=== PATIENT | male | born 1950 | race Caucasian/White ===

== ENCOUNTER → 2017-05-26 | Day surgery (SDC) | payer MEDICARE ==
[~2017-05-26] MED LIST: ASPI81TA50 PO; ATOR40TA PO; HEPARIN PF 500 UNIT/5 ML DISP.SYRIN. IV ONE; IV RINGERS,LACTATED 1000ML 1,000 ML IV SCH; LATA2.5D3 EACHEYE; METO10TA81 PO; OMEG1CAP6 PO; PACL6VIA IV; PROPOFOL 40 ML IV ONE; [UNRECOGNIZED DRUG - CODE] IV; [UNRECOGNIZED DRUG - CODE] IV
--- NOTE | 2017-05-26 09:18 | PDOC1 ---
HISTORY & PHYSICAL H&P William Nava [id number] 1950 05/05/2017 02:30 PM 10/19 [place] [facility] [employer] [facility] OUR PATIENTS COME FIRST [address] [place] [id number] Ph. [phone] Patient: William Nava Date of : 1950 Date: 05/05/2017 2:30 PM Visit Type: Consult This 66 year old male presents for GI bleeding. History of Present Illness: 1. GI bleeding Quality: FOBT positive. Pertinent negatives include abdominal pain, change in bowel habits, constipation, decreased appetite, diarrhea, nausea, vomiting and weight loss. Additional information: Patient has heme positive stool and is here for evaluation. Has been treated for recurrent throat cancer with chemotherapy. INTAKE COMMENTS: Intake Comments: Nurse Note: the pt is here today for a screening colonoscopy, the pt had positive hemoccult cards with his PCP but has not seen any blood with BM's. PROBLEM LIST: Problem Description Onset Date Hypotension due to drugs 07/30/2016 Type 2 diabetes mellitus with hyperglycemia, with long-term current use of insulin 07/30/2016 Essential hypertension 04/29/2016 Larynx cancer 04/29/2016 Squamous cell carcinoma of larynx 04/29/2016 Hyperlipidemia LDL goal <100 04/29/2016 Hypothyroidism, unspecified type 03/27/2016 Hoarseness or changing voice 03/27/2016 Hyperlipidemia LDL goal <130 03/27/2016 Benign non-nodular prostatic hyperplasia without lower urinary tract symptoms Alcohol use disorder 03/27/2016 Colon cancer screening 03/27/2016 Uncontrolled type 2 diabetes mellitus with hyperglycemia, with long-term current use of insulin 06/04/2016 HTN, goal below 130/80 06/04/2016 Prostate cancer screening 03/27/2016 Tracheostomy present 04/29/2016 Tracheostomy care 04/29/2016 Uncontrolled type 2 diabetes mellitus without complication, with long-term current use of insulin 04/29/2016 PAST MEDICAL/SURGICAL HISTORY (Detailed) Disease/disorder Onset Date Management Date Comments laryngectomy tracheostomy Medications (Active): Started Medication Directions Instruction Stopped 03/27/2016 Aspirin Low Dose 81 mg tablet,delayed release take 1 tablet by oral route every day carboplatin infuse by intravenous route every day Erbitux infuse by intravenous route every week over (Maximum infusion rate 10 mg/min) 03/27/2016 Fish Oil [place] 3-6-9 300 mg-1,000 mg capsule,delayed release Take 1 gel capsule by mouth daily 09/29/2016 latanoprost 0.005 % eye drops instill 1 drop by ophthalmic route every day into affected eye(s) in the evening 04/27/2017 Lipitor 40 mg tablet take 1 tablet by oral route every day 03/27/2016 multivitamin tablet take 1 tablet by oral route every day with food paclitaxel 04/24/2017 Reglan 10 mg tablet take 1 tablet by oral route 4 times every day 30 minutes before meals and at bedtime Allergies: Ingredient Reaction Medication Name Comment NO KNOWN ALLERGIES REVIEW OF SYSTEMS System Neg/Pos Details Constitutional Negative Chills, fever, malaise, weight gain and weight loss. ENMT Negative Sore throat. Eyes Negative Double vision. Respiratory Negative Dyspnea and wheezing. Cardio Negative Chest pain and irregular heartbeat/palpitations. GI Positive See HPI. GI Negative Abdominal pain, change in bowel habits, change in stool caliber, constipation, decreased appetite, diarrhea, melena, nausea, see HPI, rectal bleeding and vomiting. Negative Dysuria and hematuria. Endocrine Negative Cold intolerance and heat intolerance. Psych Negative Anxiety. Integumentary Negative Hives and rash. MS Negative Joint pain. Serge/Lymph Negative Easy bleeding and easy bruising. Allergic/Immuno Negative Food allergies. VITAL SIGNS Time BP mm/Hg Pulse /min Resp /min Temp F Ht ft Ht in Ht cm Wt lb Wt kg BMI kg/ m2 BSA m2 O2 Sat% 2:29 PM 132/78 110 98.1 6.0 4.00 193.04 146.40 66.406 17.82 98 Time Measured by 2:29 PM [facility] PHYSICAL EXAM: Exam Findings Details Constitutional Normal Well developed. Eyes Normal Conjunctiva - Right: Normal, Left: Normal. Sclera - Right: Normal, Left: Normal. Nasopharynx Normal Lips/teeth/gums - Normal. Neck Exam Comments Patient has tracheostomy placed due to recurrent throat cancer and has been undergoing chemotherapy. Neck Exam Normal Inspection - Normal. Thyroid gland - Normal. Respiratory * Auscultation - Side: bilateral, Location: base, Findings: crackles. Cardiovascular Normal Regular rate and rhythm. No murmurs, gallops, or rubs. Vascular Normal Pulses - Carotids: Normal, Femoral: Normal, Dorsalis pedis: Normal. Abdomen Normal Inspection - Normal. Anterior palpation - No guarding. No abdominal tenderness. No hepatic enlargement. No splenic enlargement. No hernia. No ascites. Skin Normal Inspection - Normal. Extremity Normal No edema. Psychiatric * Oriented to time, place, person and situation. Psychiatric Normal Appropriate mood and effect. Assessment/Plan # Detail Type Description 1. Assessment Gastrointestinal hemorrhage, unspecified gastrointestinal hemorrhage type (K92.2). Patient Plan schedule colonoscopy at [facility] Plan Orders Further diagnostic evaluations ordered today include(s) Colonoscopy to be performed today. He is to schedule a follow-up visit with Luis Manuel Kathleen MD upon completion of work-up Electronically signed by: Luis Manuel Kathleen MD 05/05/2017 05:04 PM Document generated by: Luis Manuel Kathleen 05/05/2017 05:04 PM Bebo Stanley MD, Family Practice; Carlos Montemayor MD Internal Medicine; Martin Garcia MD, Internal Medicine; Opal Kathleen MD Internal Medicine; Luis Manuel Kathleen MD, Gastroenterology; Iván Ragsdale MD, Rheumatology, S. Sagar Henriquez, Physical Medicine/Rehab JCesar Gudino APRN ------ 05/26/17 Patient seen and examined. No change in H&P LUIS MANUEL KATHLEEN MD May 26, 2017 09:18
[2017-05-26 10:43] VITALS: BP 122/74
== END | disposition home or self-care (01) ==
LOC: SURG 08:49
PROVIDERS: ATTEND Internal Medicine Gastroenterology
DX: R19.5 Other fecal abnormalities (principal); Z53.8 Procedure and treatment not carried out for other reasons; E78.00 Pure hypercholesterolemia, unspecified; E11.39 Type 2 diabetes mellitus with other diabetic ophthalmic complication; H40.9 Unspecified glaucoma; E03.9 Hypothyroidism, unspecified; Z72.89 Other problems related to lifestyle
CPT/HCPCS: 45378; J2704